=== PATIENT | female | born 2005 | race Caucasian/White ===

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

== ENCOUNTER 2024-10-28 20:45 | Observation (INO) ==
[2024-10-28 21:19] VITALS: RESP 18
[2024-10-28] MEDS ORDERED: LIDOCAINE 1% LOCAL 20 ML VIAL INFIL PRN (23:59)
[2024-10-28] MEDS ORDERED: OXYTOCIN 30 UNITS/NSS 30 UNITS/500 ML BAG IV PRN (23:59)
--- NOTE | 2024-10-29 00:09 | History & Physical Report ---
Date of Service October 29, 2024 Assessment & Plan (1) Supervision of normal first : Plan: Admit to L&D. OK to ambulate. OK for epidural when she desires. FHT/toco. Labs. IV. Glucose on admission and hourly when in active labor. History of Present Illness Chief Complaint: contractions Primary Care Provider: Bonita Kruger 19yo @ 38 5/7, contractions. No leaking, no bleeding. + movement. and Delivery Plans Has medical marijuana card-but states has not used since +HPT Bipolar--on quetiapine Hgb 10.0 on 28 wk labs. Started Fe 09/02 - retest in one month Hepatitis B Non Immune *Recommend Hepatitis B Vaccine GDM (failed 1 hr declines 2hr) GDM on insulin (Not checking) *Wkly NSTs @32wks and Twice wkly @36wks *Serial growth US @28wks *Deliver by [facility] 11/01 Suspected LGA: EFW 89%, AC >98 at 36 weeks. Allergies Allergy/AdvReac Type Severity Reaction Status Date / Time pollen extracts Allergy Intermediate SEASONAL Verified 10/28/24 21:01 ALLERGY latex Allergy Mild Hives Verified 10/28/24 21:01 Home Medications Medication Instructions Recorded Confirmed Type albuterol sulfate 90 mcg/actuation 2 puff inhalation Q4 PRN Wheezing 10/15/18 10/28/24 History aerosol inhaler cetirizine 10 mg capsule (Zyrtec) 10 mg PO HS 03/07/22 10/28/24 History acetaminophen 500 mg tablet 1,000 mg PO Q6 PRN Pain 04/15/23 10/28/24 History (Tylenol Extra Strength) quetiapine 50 mg tablet 150 mg PO HS 04/15/23 10/28/24 History meclizine [Dramamine (meclizine)] 1 tab PO HS 04/28/24 10/28/24 History omeprazole 1 tab PO DAILY 04/28/24 10/28/24 History 21-iron fu-folic acid 1 tab PO DAILY 04/28/24 10/28/24 History [ Complete] ferrous sulfate 1 tab PO DAILY 09/15/24 10/28/24 History acetone (urine) test (Ketone Urine #50 ea 09/20/24 10/21/24 Rx Test strips) blood sugar diagnostic (OneTouch #150 ea 09/20/24 10/21/24 Rx Verio test strips) blood-glucose meter (OneTouch #1 ea 09/20/24 10/21/24 Rx Verio Reflect Meter) lancets 33 gauge (OneTouch Delica #150 ea 09/20/24 10/21/24 Rx Plus Lancet) Patient History Medical History (Updated 10/28/24 @ 21:01 by Niru Gifford, RN) Medical marijuana use stopped in february with positive pregnany test Depression with anxiety Bipolar disorder ADHD Varicella vaccination COVID-19 TMJ (temporomandibular joint disorder) Otalgia, bilateral Allergic conjunctivitis Anxiety Migraine headache Surgical History (Updated 10/28/24 @ 21:00 by Niru Gifford, RN) [place] teeth extracted No history of previous surgery Family History Grandmother (Paternal) Hearing loss Grandmother (Maternal) Hypertension Stroke Cancer Heart disease Bleeding disorder Other No family history of adverse response to anesthesia No pertinent family history Social History (Updated 04/28/24 @ 13:25 by Carmita Myesr) Smoking Status: Former smoker Tobacco Type: E-cigarettes / Vaping Second Hand Exposure: Yes; Do You Dip or Chew Tobacco: No; Hx Alcohol Use: No Hx Substance Use: Yes Prescribed Medications: Marijuana Last Used Substance: Unknown Last Used Substance Other:: last week of 02/2024 Substance Use Type Other:: pt had medical card at the time Preferred Language: Mohawk Communication Ability: Effective Head Of Mobile Required: No Beliefs That Will Affect Care: None marital status: marital status details: andrea Cohnshannon (21) [phone] Current Living Situation: Spouse Current Living Situation Comment: apartment with and mother current occupational status: unemployed Other Information That Helps Us Care for You: No Feels Safe at Home: Yes Safety Concerns: Feels Safe At This Time Assistive Devices: None Review of Systems All systems reviewed & are unremarkable except as noted in HPI & below Physical Exam Physical Exam: FHT Cat 1 Jerome Q 2-4 SVE 4/70/-2 Constitutional: WD/WN, vitals as above Respiratory: normal respiratory effort, lungs clear to auscultation no respiratory distress Cardiovascular: Rate/Rhythm: regular rate and regular rhythm Gastrointestinal (Abdomen): Inspection/Auscultation: abdomen normal to inspection Percussion/Palpation: abdomen soft; abdomen nontender Gravid. No s/s chorio or abruption. Skin: no rashes, warm and dry Psychiatric: A+Ox3, euthymic affect Results & Data Vital Signs (Past 12 Hours) Vital Signs Temp Pulse Resp BP O2 Del Method 10/29/24 00:05 95 H 119/72 10/28/24 21:08 36.8 C 100 H 18 126/76 10/28/24 21:05 36.8 C 18 Room Air Coding Level of Care Code None Diagnoses Supervision of normal first Z34.00
[2024-10-29] MEDS ORDERED: LACTATED RINGER'S 1,000 ML IV SCH (00:15)
[2024-10-29 00:44] LABS: Hematocrit (blood only) 34.4 % (37.0-47.0); Hemoglobin 10.9 g/dl (12.0-16.0); Mean Corpuscular Hemoglobin 26.3 pg (25.0-34.0); Mean Corpuscular Hgb Conc 31.7 g/dL (32.0-36.0); Mean Corpuscular Volume 83.1 fL (80.0-100.0); Mean Platelet Volume 11.7 fL (9.4-12.4); Platelet Count 277 K/uL (130-400); RDW Coefficient of Variation 15.3 % (11.5-14.5); RDW Standard Deviation 45.6 fL (36.4-46.3); Red Blood Count 4.14 M/uL (4.20-5.40); White Blood Count 13.84 K/ul (4.8-10.8)
[2024-10-29 03:06] VITALS: BP 103/69; PULSE 82
[2024-10-29 03:12] VITALS: TEMP 97.9
--- NOTE | 2024-10-29 04:45 | Obstetrical Progress Note ---
Date of Service October 29, 2024 Assessment & Plan Admission and Anticipated Discharge Date Admission Date: October 28, 2024 Subjective Patient requesting to go home. States she thought she was going to be checked and discharged home upon initial arrival at the hospital. Feels like contractions are really spaced, barely feeling them. FHT Cat 1, reactive NST [place] irreg SVE 4/80/-2. Discussed s/s labor - needs to return immediately if these occur. Will DC to home. Followup as scheduled in office, has IOL scheduled Friday. Results & Data Vital Signs (Past 12 Hours) Vital Signs Temp Pulse Resp BP O2 Del Method 10/29/24 03:05 36.6 C 82 18 103/69 10/29/24 00:05 95 H 119/72 10/28/24 21:08 36.8 C 100 H 18 126/76 10/28/24 21:05 36.8 C 18 Room Air PG Care Time/CCT Total # of Minutes Spent Total Time Spent with Patient: Total time spent is greater than 50% in coordination of care (as documented) at patient's floor/unit and/or counseling patient: Coding Level of Care Code 27275 OP VST EST MOD 30 MIN
== END 2024-10-29 04:48 | disposition home or self-care (01) | DRG 833 ==
LOC: OPB 20:45 → 4S1 20:46 → INTOOBSV 23:59 → 4S1 23:59

== ENCOUNTER 2024-11-01 07:33 | Inpatient (IN) ==
[2024-11-01] MEDS ORDERED: ACETAMINOPHEN 325 MG TAB PO PRN (08:10)
[2024-11-01] MEDS ORDERED: LIDOCAINE 1% LOCAL 20 ML VIAL INFIL PRN (08:10)
[2024-11-01] MEDS ORDERED: CALCIUM CARBONATE 500 MG CHEWABLE TAB PO PRN (08:10)
[2024-11-01] MEDS ORDERED: OXYTOCIN 30 UNITS/NSS 30 UNITS/500 ML BAG IV PRN (08:10)
--- NOTE | 2024-11-01 08:33 | History & Physical Report ---
Date of Service November 01, 2024 Assessment & Plan (1) Gestational diabetes mellitus (GDM) affecting , antepartum: (2) Encounter for induction of labor: Plan start pitocin for iol. epidural on demand. arom when indicated. monitor blood sugars. anticipate . fetus category on. Admission and Anticipated Discharge Date Admission Date: November 01, 2024 History of Present Illness Chief Complaint: iol Primary Care Provider: Bonita Kruger Patient is a 19yowf who presents for iol. Inducing for poorly treated gdm. Notes good fm. Has had intermittent contractions for several days. no lof/vb. +fm. Of note , baby appears large on recent ultrasound. and Delivery Plans Has medical marijuana card-but states has not used since +HPT notes it is , has not used since +upt Bipolar--on quetiapine Hgb 10.0 on 28 wk labs. Started Fe 09/02 - retest in one month Hepatitis B Non Immune *Recommend Hepatitis B Vaccine GDM (failed 1 hr declines 2hr) GDM on insulin (Not checking) *Wkly NSTs @32wks and Twice wkly @36wks *Serial growth US @28wks *Deliver by [facility] 11/01 Suspected LGA: EFW 89%, AC >98 at 36 weeks. OB Labs: Blood Type B Positive 05/03/24 Antibody Screen NEGATIVE 05/03/24 Hgb 10.0 g/dl (12.0-16.0) L 08/16/24 Hct 31.8 % (37.0-47.0) L 08/16/24 MCV 86.2 fL (80.0-100.0) 05/03/24 Plt Count 382 K/uL (130-400) 05/03/24 Rubella IgG Antibody Immune (Immune) 05/03/24 Treponema pallidum Ab Negative (Negative) 08/16/24 Hep Bs Antigen Negative (Negative) 05/03/24 Hepatitis C Antibody Negative (Negative) 05/03/24 HIV 1&2 Ab/P24 Ag 4thGn Negative (Negative) 05/03/24 HIV (1&2) Ag & Ab Conf NON-REACTIVE (NON-REACTIVE) 03/07/22 Glucose 1 Hr 50 gm 154 mg/dl (70-130) H 08/16/24 Maternal Serum AFP 32.3 ng/mL 05/24/24 OB Optional Labs: Chlamydia trachomatis RNA Not Detected (NotDetected) 05/03/24 Neisseria gonorrhoeae RNA Not Detected (NotDetected) 05/03/24 Thyroid Stimulating Hormone (TSH) 1.229 uIu/ml (0.300-4.500) 10/18/23 Alpha Fetoprotein Triple Screen SEE NOTE 05/24/24 Labs Reviewed: Horizon 14-negative--mln cfdna-low risk--mln gbs neg Allergies Allergy/AdvReac Type Severity Reaction Status Date / Time pollen extracts Allergy Intermediate SEASONAL Verified 10/29/24 10:10 ALLERGY latex Allergy Mild Hives Verified 10/29/24 10:10 Home Medications Medication Instructions Recorded Confirmed Type albuterol sulfate 90 mcg/actuation 2 puff inhalation Q4 PRN Wheezing 10/15/18 11/01/24 History aerosol inhaler cetirizine 10 mg capsule (Zyrtec) 10 mg PO HS 03/07/22 11/01/24 History quetiapine 50 mg tablet 100 mg PO HS 04/15/23 11/01/24 History meclizine [Dramamine (meclizine)] 1 tab PO HS 04/28/24 11/01/24 History omeprazole 1 tab PO DAILY 04/28/24 11/01/24 History 21-iron fu-folic acid 1 tab PO DAILY 04/28/24 11/01/24 History [ Complete] ferrous sulfate 1 tab PO DAILY 09/15/24 11/01/24 History acetone (urine) test (Ketone Urine #50 ea 09/20/24 10/29/24 Rx Test strips) blood sugar diagnostic (OneTouch #150 ea 09/20/24 10/29/24 Rx Verio test strips) blood-glucose meter (OneTouch #1 ea 09/20/24 10/29/24 Rx Verio Reflect Meter) lancets 33 gauge (OneTouch Delica #150 ea 09/20/24 10/29/24 Rx Plus Lancet) Patient History Medical History (Updated 11/01/24 @ 08:44 by Alysia Johnson MD, FACOG) Medical marijuana use stopped in february with positive pregnany test Depression with anxiety Bipolar disorder ADHD Varicella vaccination COVID-19 TMJ (temporomandibular joint disorder) Otalgia, bilateral Allergic conjunctivitis Anxiety Migraine headache Surgical History [place] teeth extracted No history of previous surgery Family History Grandmother (Paternal) Hearing loss Grandmother (Maternal) Hypertension Stroke Cancer Heart disease Bleeding disorder Other No family history of adverse response to anesthesia No pertinent family history Social History Smoking Status: Former smoker Tobacco Type: E-cigarettes / Vaping Second Hand Exposure: Yes; Do You Dip or Chew Tobacco: No; Hx Alcohol Use: No Hx Substance Use: Yes Prescribed Medications: Marijuana Prescribed Medications Comment: medical marijuana- stopped with positive test Last Used Substance: Unknown Last Used Substance Other:: last week of 02/2024 Substance Use Type Other:: medical marijuana Preferred Language: Slovak Communication Ability: Effective [place] Required: No Beliefs That Will Affect Care: None marital status: marital status details: andrea Crawford Dakotah (21) [phone] Current Living Situation: Spouse Current Living Situation Comment: apartment with and mother current occupational status: unemployed Feels Safe at Home: Yes Safety Concerns: Feels Safe At This Time Diet: regular Assistive Devices: None Physical Exam Constitutional: WD/WN, vitals as above Gastrointestinal (Abdomen): soft, gravid nt Psychiatric: A+Ox3, euthymic affect Genitourinary: cx--4/80/-2/mid/soft toco--jorge efm--150s with mod variability, accels to 170s, no decels Results & Data Vital Signs (Past 12 Hours) Vital Signs Pulse BP 11/01/24 07:48 117 H 122/76 Coding Level of Care Code None Diagnoses Gestational diabetes mellitus (GDM) affecting , antepartum O24.419 Encounter for induction of labor Z34.90
[2024-11-01 08:43] LABS: Hematocrit (blood only) 34.4 % (37.0-47.0); Mean Corpuscular Hemoglobin 26.3 pg (25.0-34.0); Mean Corpuscular Volume 82.1 fL (80.0-100.0); Platelet Count 268 K/uL (130-400); RDW Coefficient of Variation 15.5 % (11.5-14.5); RDW Standard Deviation 46.3 fL (36.4-46.3); Red Blood Count 4.19 M/uL (4.20-5.40); White Blood Count 12.23 K/ul (4.8-10.8)
[2024-11-01 09:58] LABS: Amphetamines+Metham, Urine Neg (Neg); Barbiturates, Urine Neg (Neg); Benzodiazepine, Urine Neg (Neg); Cocaine, Urine Neg (Neg); Fentanyl, Urine Neg (Neg); MDMA (Ecstacy), Urine Neg (Neg); Marijuana, Urine Neg (Neg); Methadone, Urine Neg (Neg); Opiate, Urine Neg (Neg); Phencyclidine, Urine Neg (Neg)
[2024-11-01] MEDS: OXYTOCIN 30 UNITS/NSS 30 UNITS/500 ML BAG IV PRN (10:30)
[2024-11-01] MEDS: SODIUM CHLORIDE 0.9% 1,000 ML IV SCH ×2 (10:32→19:11)
[2024-11-01] MEDS: fentANYL 2 MCG/ML BUPIVacaine 0.125%-NSS 100ML BAG ONE (13:55)
[2024-11-01] MEDS: LIDOCAINE 2%/EPINEPHRINE 1:200,000 20 ML PF ONE (13:56)
[2024-11-01] MEDS: fentaNYL citrate PF 100 MCG/2 ML VIAL ONE (13:58)
[2024-11-01] MEDS: BUPIVACAINE 0.25% PF 30 ML VIAL ONE (13:58)
[2024-11-01] MEDS: SODIUM CHLORIDE 0.9% PF INJ 10 ML VIAL ONE (13:58)
--- NOTE | 2024-11-01 14:02 | Anesthesiology Consultation ---
Date of Service November 01, 2024 Assessment & Plan Chart Review Chart Review: Acceptable Risk for Labor Epidural Consults Requested none History Height/Weight Height: 5 ft 7 in Weight: 101.729 kg Allergies Allergy/AdvReac Type Severity Reaction Status Date / Time pollen extracts Allergy Intermediate SEASONAL Verified 10/29/24 10:10 ALLERGY latex Allergy Mild Hives Verified 10/29/24 10:10 Medications Home Medications Medication Instructions Recorded Confirmed Last Taken albuterol sulfate 90 mcg/actuation 2 puff inhalation Q4 PRN Wheezing 10/15/18 11/01/24 03/06/22 aerosol inhaler cetirizine 10 mg capsule (Zyrtec) 10 mg PO HS 03/07/22 11/01/24 10/27/24 quetiapine 50 mg tablet 100 mg PO HS 04/15/23 11/01/24 10/31/24 21:00 meclizine [Dramamine (meclizine)] 1 tab PO HS 04/28/24 11/01/24 10/31/24 21:00 omeprazole 1 tab PO DAILY 04/28/24 11/01/24 10/27/24 21-iron fu-folic acid 1 tab PO DAILY 04/28/24 11/01/24 10/27/24 [ Complete] ferrous sulfate 1 tab PO DAILY 09/15/24 11/01/24 10/27/24 acetone (urine) test (Ketone Urine #50 ea 09/20/24 10/29/24 Unknown Test strips) blood sugar diagnostic (OneTouch #150 ea 09/20/24 10/29/24 Unknown Verio test strips) blood-glucose meter (OneTouch #1 ea 09/20/24 10/29/24 Unknown Verio Reflect Meter) lancets 33 gauge (OneTouch Delica #150 ea 09/20/24 10/29/24 Unknown Plus Lancet) Active Medications Generic Name Dose Route Start Last Admin Trade Name Freq PRN Reason Stop Dose Admin Oxytocin 30 units in 500 mls @ 9 mls/hr 11/01/24 10:11 11/01/24 13:00 Pitocin 30 Units/Nss IV 11/03/24 10:10 0.54 units/hr .Q24H PRN 9 mls/hr Labor Induction/Augmentation Titration Protocol 0.54 UNITS/HR Sodium Chloride 1,000 mls @ 50 mls/hr 11/01/24 10:15 11/01/24 13:29 Nss IV 11/02/24 10:14 50 mls/hr .Q20H VALERIO Administration Past Medical History Medical History (Updated 11/01/24 @ 10:20 by Brittney Pierce, JO) Asthma Medical marijuana use stopped in february with positive pregnany test Depression with anxiety Bipolar disorder ADHD Varicella vaccination COVID-19 TMJ (temporomandibular joint disorder) Otalgia, bilateral Allergic conjunctivitis Anxiety Migraine headache Past Family History Family History Grandmother (Paternal) Hearing loss Grandmother (Maternal) Hypertension Stroke Cancer Heart disease Bleeding disorder Other No family history of adverse response to anesthesia No pertinent family history Past Surgical History Surgical History [place] teeth extracted No history of previous surgery Social History Smoking Status: Former smoker Do You Dip or Chew Tobacco: No Hx Alcohol Use: No Hx Substance Use: Yes substance use type: marijuana Substance Use Type Other:: medical marijuana Last Used Substance: Unknown Last Used Substance Other:: last week of 02/2024 Physical Exam Vital Signs Last Vital Signs Temp 36.7 C 11/01/24 12:00 Pulse 86 11/01/24 14:00 Resp 18 11/01/24 12:00 BP 111/59 L 11/01/24 14:00 Pulse Ox 99 11/01/24 13:57 Testing Laboratory Results 11/01/24 08:17 Blood Type B Positive 11/01/24 08:17 Antibody Screen NEGATIVE 11/01/24 08:17 11/01/24 11/01/24 12:02 09:04 POC Glucose 94 119 H
[2024-11-01] MEDS ORDERED: ROPIVACAINE 0.5% PF 5 MG/ML 20 ML VIAL EPI PRN (14:03)
[2024-11-01] MEDS ORDERED: fentaNYL citrate PF 100 MCG/2 ML VIAL EPI PRN (14:03)
[2024-11-01] MEDS ORDERED: NALOXONE HCL 1 MG in SODIUM CHLORIDE 0.9% 1,000 ML IV PRN (14:03)
[2024-11-01] MEDS ORDERED: NALOXONE HCL 0.4 MG/1 ML VIAL/CARP IV PRN (14:03)
[2024-11-01] MEDS ORDERED: ePHEDrine sulfate 50 MG/ML AMP IV PRN (14:03)
[2024-11-01] MEDS ORDERED: NALBUPHINE HCL INJ 10 MG/ML AMP IV PRN (14:03)
[2024-11-01] MEDS ORDERED: LIDOCAINE 2% MPF LOCAL 5 ML VIAL EPI PRN (14:03)
[2024-11-01] MEDS ORDERED: diphenhydrAMINE 50 MG/ML VIAL IV PRN (14:03)
[2024-11-01] MEDS ORDERED: BUPIVACAINE 0.25% PF 30 ML VIAL EPI PRN (14:03)
[2024-11-01] MEDS ORDERED: SODIUM CHLORIDE 0.9% PF INJ 10 ML VIAL EPI PRN (14:03)
[2024-11-01] MEDS: fentaNYL citrate PF 100 MCG/2 ML VIAL EPI STA (14:55)
[2024-11-01] MEDS: BUPIVACAINE 0.25% PF 30 ML VIAL EPI STA (14:55)
[2024-11-01] MEDS: LIDOCAINE 2%/EPINEPHRINE 1:200,000 20 ML PF EPI STA (14:55)
[2024-11-01] MEDS: SODIUM CHLORIDE 0.9% PF INJ 10 ML VIAL EPI STA (14:55)
--- NOTE | 2024-11-01 19:08 | Labor Progress Brief Note ---
Date of Service November 01, 2024 Subjective late entry because of busy labor and delivery Patient seen and evaluated. Comfortable with epidural Assessment & Plan (1) Non-compliant patient: (2) Gestational diabetes mellitus (GDM) affecting , antepartum: Plan Sugars have been less than 120. Fetus category one for the most part. Continue current management and increase pitocin. Admission and Anticipated Discharge Date Admission Date: November 01, 2024 Physical Exam Physical Exam: cx--4/75/-2 arom--clear toco--q2-4min, pit at 11 efm--140s with mod variability, accels to 150s, rare small variable Results & Data Vital Signs (Past 12 Hours) Vital Signs Temp Pulse Resp BP Pulse Ox 11/01/24 19:04 90 120/68 11/01/24 19:02 83 99 11/01/24 18:57 82 99 11/01/24 18:52 95 H 99 11/01/24 18:51 85 119/69 11/01/24 18:49 88 122/65 11/01/24 18:47 79 99 11/01/24 18:42 80 99 11/01/24 18:37 86 99 11/01/24 18:32 81 99 11/01/24 18:27 85 100 11/01/24 18:22 79 99 11/01/24 18:17 81 99 11/01/24 18:12 95 H 99 11/01/24 18:07 92 H 99 11/01/24 18:05 111 H 119/76 11/01/24 18:02 86 99 11/01/24 17:57 96 H 98 11/01/24 17:52 87 98 11/01/24 17:51 85 112/70 11/01/24 17:47 80 98 11/01/24 17:42 86 98 11/01/24 17:37 89 98 11/01/24 17:35 82 106/55 L 11/01/24 17:32 85 98 11/01/24 17:27 87 98 11/01/24 17:22 85 99 11/01/24 17:21 87 106/56 L 11/01/24 17:17 87 98 11/01/24 17:14 84 114/63 11/01/24 17:12 85 98 11/01/24 17:07 86 98 11/01/24 17:05 74 83/52 L 11/01/24 17:02 75 99 11/01/24 16:57 80 98 11/01/24 16:52 79 98 11/01/24 16:50 82 97/59 L 11/01/24 16:47 76 98 11/01/24 16:42 79 99 11/01/24 16:37 75 99 11/01/24 16:36 80 104/65 11/01/24 16:32 98 H 99 11/01/24 16:30 18 11/01/24 16:30 36.9 C 18 11/01/24 16:27 92 H 98 11/01/24 16:22 82 98 11/01/24 16:21 96 H 121/73 11/01/24 16:17 71 98 11/01/24 16:12 73 98 11/01/24 16:07 88 98 11/01/24 16:04 80 113/70 11/01/24 16:02 73 98 11/01/24 15:57 74 98 11/01/24 15:52 75 98 11/01/24 15:50 77 116/72 11/01/24 15:47 73 97 11/01/24 15:42 75 97 11/01/24 15:37 79 98 11/01/24 15:35 81 118/71 11/01/24 15:32 77 97 11/01/24 15:30 16 11/01/24 15:30 16 11/01/24 15:27 74 97 11/01/24 15:22 77 98 11/01/24 15:21 80 111/73 11/01/24 15:17 76 97 11/01/24 15:12 83 97 11/01/24 15:07 80 97 11/01/24 15:05 83 112/72 11/01/24 15:02 81 97 11/01/24 14:57 84 97 11/01/24 14:52 93 H 98 11/01/24 14:51 90 108/73 11/01/24 14:47 98 11/01/24 14:47 88 11/01/24 14:47 93 H 100/63 11/01/24 14:42 91 H 99 11/01/24 14:37 99 11/01/24 14:37 92 H 11/01/24 14:37 86 103/59 L 11/01/24 14:32 92 H 99 11/01/24 14:27 93 H 99 11/01/24 14:22 92 H 98 11/01/24 14:20 91 H 104/66 11/01/24 14:17 90 99 11/01/24 14:12 84 99 11/01/24 14:07 87 99 11/01/24 14:04 83 118/65 11/01/24 14:02 90 118/65 99 11/01/24 14:00 86 111/59 L 11/01/24 13:58 88 112/68 11/01/24 13:57 93 H 99 11/01/24 13:56 83 112/65 11/01/24 13:52 85 121/83 99 11/01/24 13:50 94 H 122/82 11/01/24 13:48 93 H 126/83 11/01/24 13:47 97 H 99 11/01/24 13:02 81 119/79 11/01/24 12:01 85 121/79 11/01/24 12:00 18 11/01/24 12:00 36.7 C 18 11/01/24 10:35 86 104/60 11/01/24 08:15 36.4 C L 117 H 122/76 11/01/24 07:48 117 H 122/76 Coding Level of Care Code None Diagnoses Non-compliant patient O09.899; Z91.199 Gestational diabetes mellitus (GDM) affecting , antepartum O24.419
[2024-11-01] MEDS ORDERED: SODIUM CHLORIDE 0.9% 50 ML IV PRN (19:28)
[2024-11-01] MEDS ORDERED: SODIUM CHLORIDE 0.9% 100 ML IV PRN (19:28)
[2024-11-01] MEDS: ePHEDrine sulfate 50 MG/ML AMP ONE (21:23)
--- NOTE | 2024-11-01 21:35 | Labor Progress Brief Note ---
Date of Service November 01, 2024 Subjective notes nausea and some contraction pain. Assessment & Plan (1) Encounter for induction of labor: (2) Non-compliant patient: (3) Gestational diabetes mellitus (GDM) affecting , antepartum: Plan continue current management. fetus category one. anticipate . Admission and Anticipated Discharge Date Admission Date: November 01, 2024 Physical Exam Physical Exam: cx--rim/100/-1 toco--q2-3, pt at 10 efm--130s wtih mod variability, small accels, +scalp stim Results & Data Vital Signs (Past 12 Hours) Vital Signs Temp Pulse Resp BP Pulse Ox 11/01/24 21:27 101 H 97 11/01/24 21:22 89 98 11/01/24 21:20 95 H 112/70 11/01/24 21:17 92 H 98 11/01/24 21:12 94 H 99 11/01/24 21:07 92 H 98 11/01/24 21:05 79 106/60 11/01/24 21:02 84 98 11/01/24 21:01 16 11/01/24 21:01 36.9 C 16 11/01/24 20:57 82 96 11/01/24 20:52 75 98 11/01/24 20:51 77 105/66 11/01/24 20:47 79 98 11/01/24 20:42 78 98 11/01/24 20:37 97 H 98 11/01/24 20:36 99 H 115/68 11/01/24 20:32 93 H 98 11/01/24 20:27 96 H 99 11/01/24 20:22 102 H 99 11/01/24 20:20 87 109/65 11/01/24 20:17 89 98 11/01/24 20:12 87 98 11/01/24 20:07 90 99 11/01/24 20:05 88 106/59 L 11/01/24 20:02 79 98 11/01/24 19:57 82 98 11/01/24 19:52 89 99 11/01/24 19:50 82 99/59 L 11/01/24 19:47 86 98 11/01/24 19:42 79 99 11/01/24 19:37 94 H 99 11/01/24 19:35 89 104/57 L 11/01/24 19:32 89 98 11/01/24 19:27 89 97 11/01/24 19:22 96 H 98 11/01/24 19:20 85 96/62 L 11/01/24 19:17 89 98 11/01/24 19:12 100 H 99 11/01/24 19:10 36.8 C 18 11/01/24 19:07 104 H 99 11/01/24 19:04 90 120/68 11/01/24 19:02 83 99 11/01/24 18:57 82 99 11/01/24 18:52 95 H 99 11/01/24 18:51 85 119/69 11/01/24 18:49 88 122/65 11/01/24 18:47 79 99 11/01/24 18:42 80 99 11/01/24 18:37 86 99 11/01/24 18:32 81 99 11/01/24 18:27 85 100 11/01/24 18:22 79 99 11/01/24 18:17 81 99 11/01/24 18:12 95 H 99 11/01/24 18:07 92 H 99 11/01/24 18:05 111 H 119/76 11/01/24 18:02 86 99 11/01/24 18:00 18 11/01/24 18:00 18 11/01/24 17:57 96 H 98 11/01/24 17:52 87 98 11/01/24 17:51 85 112/70 11/01/24 17:47 80 98 11/01/24 17:42 86 98 11/01/24 17:37 89 98 11/01/24 17:35 82 106/55 L 11/01/24 17:32 85 98 11/01/24 17:27 87 98 11/01/24 17:22 85 99 11/01/24 17:21 87 106/56 L 11/01/24 17:17 87 98 11/01/24 17:14 84 114/63 11/01/24 17:12 85 98 11/01/24 17:07 86 98 11/01/24 17:05 74 83/52 L 11/01/24 17:02 75 99 11/01/24 16:57 80 98 11/01/24 16:52 79 98 11/01/24 16:50 82 97/59 L 11/01/24 16:47 76 98 11/01/24 16:42 79 99 11/01/24 16:37 75 99 11/01/24 16:36 80 104/65 11/01/24 16:32 98 H 99 11/01/24 16:30 18 11/01/24 16:30 36.9 C 18 11/01/24 16:27 92 H 98 11/01/24 16:22 82 98 11/01/24 16:21 96 H 121/73 11/01/24 16:17 71 98 11/01/24 16:12 73 98 11/01/24 16:07 88 98 11/01/24 16:04 80 113/70 11/01/24 16:02 73 98 11/01/24 15:57 74 98 11/01/24 15:52 75 98 11/01/24 15:50 77 116/72 11/01/24 15:47 73 97 11/01/24 15:42 75 97 11/01/24 15:37 79 98 11/01/24 15:35 81 118/71 11/01/24 15:32 77 97 11/01/24 15:30 16 11/01/24 15:30 16 11/01/24 15:27 74 97 11/01/24 15:22 77 98 11/01/24 15:21 80 111/73 11/01/24 15:17 76 97 11/01/24 15:12 83 97 11/01/24 15:07 80 97 11/01/24 15:05 83 112/72 11/01/24 15:02 81 97 11/01/24 14:57 84 97 11/01/24 14:52 93 H 98 11/01/24 14:51 90 108/73 11/01/24 14:47 98 11/01/24 14:47 88 11/01/24 14:47 93 H 100/63 11/01/24 14:42 91 H 99 11/01/24 14:37 99 11/01/24 14:37 92 H 11/01/24 14:37 86 103/59 L 11/01/24 14:32 92 H 99 11/01/24 14:27 93 H 99 11/01/24 14:22 92 H 98 11/01/24 14:20 91 H 104/66 0203/25 14:17 90 99 11/01/24 14:12 84 99 11/01/24 14:07 87 99 11/01/24 14:04 83 118/65 11/01/24 14:02 90 118/65 99 11/01/24 14:00 86 111/59 L 11/01/24 13:58 88 112/68 11/01/24 13:57 93 H 99 11/01/24 13:56 83 112/65 11/01/24 13:52 85 121/83 99 11/01/24 13:50 94 H 122/82 11/01/24 13:48 93 H 126/83 11/01/24 13:47 97 H 99 11/01/24 13:02 81 119/79 11/01/24 12:01 85 121/79 11/01/24 12:00 18 11/01/24 12:00 36.7 C 18 11/01/24 10:35 86 104/60 Coding Level of Care Code None Diagnoses Encounter for induction of labor Z34.90 Non-compliant patient O09.899; Z91.199 Gestational diabetes mellitus (GDM) affecting , antepartum O24.419
[2024-11-01] MEDS: ONDANSETRON INJ 2 MG/ML 2 ML VIAL IV PRN (21:37)
[2024-11-01] MEDS: fentANYL 2 MCG/ML BUPIVacaine 0.125%-NSS 100ML BAG EPI PRN (21:43)
--- NOTE | 2024-11-02 00:15 | Labor Progress Brief Note ---
Date of Service November 02, 2024 Subjective more comfortable Assessment & Plan (1) Encounter for induction of labor: Plan Begin active second stage. Fetus category one. Admission and Anticipated Discharge Date Admission Date: November 01, 2024 Physical Exam Physical Exam: cx--c/c/0-+1 toco--q2min efm--120s with mod variabiltiy, accels present, no decels Results & Data Vital Signs (Past 12 Hours) Vital Signs Temp Pulse Resp BP Pulse Ox 11/02/24 00:12 124 H 100 11/02/24 00:07 90 98 11/02/24 00:05 95 H 115/70 11/02/24 00:02 88 98 11/01/24 23:57 80 99 11/01/24 23:52 91 H 97 11/01/24 23:49 103 H 112/72 11/01/24 23:47 82 98 11/01/24 23:42 89 98 11/01/24 23:37 84 98 11/01/24 23:35 85 111/66 11/01/24 23:32 98 H 97 11/01/24 23:27 91 H 98 11/01/24 23:22 87 97 11/01/24 23:20 96 H 112/66 11/01/24 23:17 83 98 11/01/24 23:12 87 97 11/01/24 23:07 95 H 97 11/01/24 23:05 85 118/66 11/01/24 23:02 36.6 C 94 H 18 98 11/01/24 22:57 83 97 11/01/24 22:52 96 H 97 11/01/24 22:50 88 117/69 11/01/24 22:47 87 98 11/01/24 22:42 88 97 11/01/24 22:37 95 H 96 11/01/24 22:35 86 112/71 11/01/24 22:32 93 H 97 11/01/24 22:27 92 H 98 11/01/24 22:22 86 97 11/01/24 22:20 85 123/75 11/01/24 22:17 85 96 11/01/24 22:12 83 100 11/01/24 22:07 87 97 11/01/24 22:05 98 H 134/79 11/01/24 22:02 89 99 11/01/24 21:57 95 H 99 11/01/24 21:52 91 H 99 11/01/24 21:50 88 116/68 11/01/24 21:47 91 H 98 11/01/24 21:42 86 97 11/01/24 21:37 92 H 97 11/01/24 21:36 88 111/71 11/01/24 21:32 91 H 97 11/01/24 21:27 101 H 97 11/01/24 21:22 89 98 11/01/24 21:20 95 H 112/70 11/01/24 21:17 92 H 98 11/01/24 21:12 94 H 99 11/01/24 21:07 92 H 98 11/01/24 21:05 79 106/60 11/01/24 21:02 84 98 11/01/24 21:01 16 11/01/24 21:01 36.9 C 16 11/01/24 20:57 82 96 11/01/24 20:52 75 98 11/01/24 20:51 77 105/66 11/01/24 20:47 79 98 11/01/24 20:42 78 98 11/01/24 20:37 97 H 98 11/01/24 20:36 99 H 115/68 11/01/24 20:32 93 H 98 11/01/24 20:27 96 H 99 11/01/24 20:22 102 H 99 11/01/24 20:20 87 109/65 11/01/24 20:17 89 98 11/01/24 20:12 87 98 11/01/24 20:07 90 99 11/01/24 20:05 88 106/59 L 11/01/24 20:02 79 98 11/01/24 19:57 82 98 11/01/24 19:52 89 99 11/01/24 19:50 82 99/59 L 11/01/24 19:47 86 98 11/01/24 19:42 79 99 11/01/24 19:37 94 H 99 11/01/24 19:35 89 104/57 L 11/01/24 19:32 89 98 11/01/24 19:27 89 97 11/01/24 19:22 96 H 98 11/01/24 19:20 85 96/62 L 11/01/24 19:17 89 98 02/03/25 19:12 100 H 99 11/01/24 19:10 36.8 C 18 11/01/24 19:07 104 H 99 11/01/24 19:04 90 120/68 11/01/24 19:02 83 99 11/01/24 18:57 82 99 11/01/24 18:52 95 H 99 11/01/24 18:51 85 119/69 11/01/24 18:49 88 122/65 11/01/24 18:47 79 99 11/01/24 18:42 80 99 11/01/24 18:37 86 99 11/01/24 18:32 81 99 11/01/24 18:27 85 100 11/01/24 18:22 79 99 11/01/24 18:17 81 99 11/01/24 18:12 95 H 99 11/01/24 18:07 92 H 99 11/01/24 18:05 111 H 119/76 11/01/24 18:02 86 99 11/01/24 18:00 18 11/01/24 18:00 18 11/01/24 17:57 96 H 98 11/01/24 17:52 87 98 11/01/24 17:51 85 112/70 11/01/24 17:47 80 98 11/01/24 17:42 86 98 11/01/24 17:37 89 98 11/01/24 17:35 82 106/55 L 11/01/24 17:32 85 98 11/01/24 17:27 87 98 11/01/24 17:22 85 99 11/01/24 17:21 87 106/56 L 11/01/24 17:17 87 98 11/01/24 17:14 84 114/63 11/01/24 17:12 85 98 11/01/24 17:07 86 98 11/01/24 17:05 74 83/52 L 11/01/24 17:02 75 99 11/01/24 16:57 80 98 11/01/24 16:52 79 98 11/01/24 16:50 82 97/59 L 11/01/24 16:47 76 98 11/01/24 16:42 79 99 11/01/24 16:37 75 99 11/01/24 16:36 80 104/65 11/01/24 16:32 98 H 99 11/01/24 16:30 18 11/01/24 16:30 36.9 C 18 11/01/24 16:27 92 H 98 11/01/24 16:22 82 98 11/01/24 16:21 96 H 121/73 11/01/24 16:17 71 98 11/01/24 16:12 73 98 11/01/24 16:07 88 98 11/01/24 16:04 80 113/70 11/01/24 16:02 73 98 11/01/24 15:57 74 98 11/01/24 15:52 75 98 11/01/24 15:50 77 116/72 11/01/24 15:47 73 97 11/01/24 15:42 75 97 11/01/24 15:37 79 98 11/01/24 15:35 81 118/71 11/01/24 15:32 77 97 11/01/24 15:30 16 11/01/24 15:30 16 11/01/24 15:27 74 97 11/01/24 15:22 77 98 11/01/24 15:21 80 111/73 11/01/24 15:17 76 97 11/01/24 15:12 83 97 11/01/24 15:07 80 97 11/01/24 15:05 83 112/72 11/01/24 15:02 81 97 11/01/24 14:57 84 97 11/01/24 14:52 93 H 98 11/01/24 14:51 90 108/73 11/01/24 14:47 98 11/01/24 14:47 88 11/01/24 14:47 93 H 100/63 11/01/24 14:42 91 H 99 11/01/24 14:37 99 11/01/24 14:37 92 H 11/01/24 14:37 86 103/59 L 11/01/24 14:32 92 H 99 11/01/24 14:27 93 H 99 11/01/24 14:22 92 H 98 11/01/24 14:20 91 H 104/66 11/01/24 14:17 90 99 11/01/24 14:12 84 99 11/01/24 14:07 87 99 11/01/24 14:04 83 118/65 11/01/24 14:02 90 118/65 99 11/01/24 14:00 86 111/59 L 11/01/24 13:58 88 112/68 11/01/24 13:57 93 H 99 11/01/24 13:56 83 112/65 11/01/24 13:52 85 121/83 99 11/01/24 13:50 94 H 122/82 11/01/24 13:48 93 H 126/83 11/01/24 13:47 97 H 99 11/01/24 13:02 81 119/79 Coding Level of Care Code None Diagnoses Encounter for induction of labor Z34.90
--- NOTE | 2024-11-02 02:05 | Labor Progress Brief Note ---
Date of Service November 02, 2024 Subjective Pushing with better effort. Assessment & Plan (1) Encounter for induction of labor: Plan pushing for 1.5 hours, but nursing notes in last 30 minutes much better effort and definitely has made progress by my exam in the last half hour. fetus reassuring. continue stage 2. Admission and Anticipated Discharge Date Admission Date: November 01, 2024 Physical Exam Physical Exam: cx--c/c/+2 toco--q2min efm--150s with mod variability, small accels, variables with pushing. Results & Data Vital Signs (Past 12 Hours) Vital Signs Temp Pulse Resp BP Pulse Ox 11/02/24 01:58 137 H 95 11/02/24 01:57 121 H 94 11/02/24 01:53 138 H 98 11/02/24 01:48 125 H 97 11/02/24 01:43 146 H 95 11/02/24 01:38 123 H 98 11/02/24 01:33 130 H 97 11/02/24 01:28 135 H 96 11/02/24 01:23 137 H 98 11/02/24 01:18 127 H 98 11/02/24 01:15 20 11/02/24 01:15 36.9 C 20 11/02/24 01:13 132 H 98 11/02/24 01:08 126 H 98 11/02/24 01:04 135 H 88 L 11/02/24 01:03 134 H 98 11/02/24 00:58 141 H 98 11/02/24 00:55 143 H 89 L 11/02/24 00:53 129 H 91 11/02/24 00:50 133 H 107/55 L 11/02/24 00:48 128 H 98 11/02/24 00:43 140 H 99 11/02/24 00:38 116 H 98 11/02/24 00:33 121 H 100 11/02/24 00:27 100 H 99 11/02/24 00:22 121 H 97 11/02/24 00:20 142 H 120/63 11/02/24 00:17 107 H 99 11/02/24 00:12 124 H 100 11/02/24 00:07 90 98 11/02/24 00:05 95 H 115/70 11/02/24 00:02 88 98 11/01/24 23:57 80 99 11/01/24 23:52 91 H 97 11/01/24 23:49 103 H 112/72 11/01/24 23:47 82 98 11/01/24 23:42 89 98 11/01/24 23:37 84 98 11/01/24 23:35 85 111/66 11/01/24 23:32 98 H 97 11/01/24 23:27 91 H 98 11/01/24 23:22 87 97 11/01/24 23:20 96 H 112/66 11/01/24 23:17 83 98 11/01/24 23:12 87 97 11/01/24 23:07 95 H 97 11/01/24 23:05 85 118/66 11/01/24 23:02 36.6 C 94 H 18 98 11/01/24 22:57 83 97 11/01/24 22:52 96 H 97 11/01/24 22:50 88 117/69 11/01/24 22:47 87 98 11/01/24 22:42 88 97 11/01/24 22:37 95 H 96 11/01/24 22:35 86 112/71 11/01/24 22:32 93 H 97 11/01/24 22:27 92 H 98 11/01/24 22:22 86 97 11/01/24 22:20 85 123/75 11/01/24 22:17 85 96 11/01/24 22:12 83 100 11/01/24 22:07 87 97 11/01/24 22:05 98 H 134/79 11/01/24 22:02 89 99 11/01/24 21:57 95 H 99 11/01/24 21:52 91 H 99 11/01/24 21:50 88 116/68 11/01/24 21:47 91 H 98 11/01/24 21:42 86 97 11/01/24 21:37 92 H 97 11/01/24 21:36 88 111/71 11/01/24 21:32 91 H 97 11/01/24 21:27 101 H 97 11/01/24 21:22 89 98 11/01/24 21:20 95 H 112/70 11/01/24 21:17 92 H 98 11/01/24 21:12 94 H 99 11/01/24 21:07 92 H 98 11/01/24 21:05 79 106/60 11/01/24 21:02 84 98 11/01/24 21:01 16 11/01/24 21:01 36.9 C 16 11/01/24 20:57 82 96 11/01/24 20:52 75 98 11/01/24 20:51 77 105/66 11/01/24 20:47 79 98 11/01/24 20:42 78 98 11/01/24 20:37 97 H 98 11/01/24 20:36 99 H 115/68 11/01/24 20:32 93 H 98 11/01/24 20:27 96 H 99 11/01/24 20:22 102 H 99 11/01/24 20:20 87 109/65 11/01/24 20:17 89 98 11/01/24 20:12 87 98 11/01/24 20:07 90 99 11/01/24 20:05 88 106/59 L 11/01/24 20:02 79 98 11/01/24 19:57 82 98 11/01/24 19:52 89 99 11/01/24 19:50 82 99/59 L 11/01/24 19:47 86 98 11/01/24 19:42 79 99 11/01/24 19:37 94 H 99 11/01/24 19:35 89 104/57 L 11/01/24 19:32 89 98 11/01/24 19:27 89 97 11/01/24 19:22 96 H 98 11/01/24 19:20 85 96/62 L 11/01/24 19:17 89 98 11/01/24 19:12 100 H 99 11/01/24 19:10 36.8 C 18 11/01/24 19:07 104 H 99 11/01/24 19:04 90 120/68 11/01/24 19:02 83 99 11/01/24 18:57 82 99 11/01/24 18:52 95 H 99 11/01/24 18:51 85 119/69 11/01/24 18:49 88 122/65 11/01/24 18:47 79 99 11/01/24 18:42 80 99 11/01/24 18:37 86 99 11/01/24 18:32 81 99 11/01/24 18:27 85 100 02/03/25 18:22 79 99 11/01/24 18:17 81 99 11/01/24 18:12 95 H 99 11/01/24 18:07 92 H 99 11/01/24 18:05 111 H 119/76 11/01/24 18:02 86 99 11/01/24 18:00 18 11/01/24 18:00 18 11/01/24 17:57 96 H 98 11/01/24 17:52 87 98 11/01/24 17:51 85 112/70 11/01/24 17:47 80 98 11/01/24 17:42 86 98 11/01/24 17:37 89 98 11/01/24 17:35 82 106/55 L 11/01/24 17:32 85 98 11/01/24 17:27 87 98 11/01/24 17:22 85 99 11/01/24 17:21 87 106/56 L 11/01/24 17:17 87 98 11/01/24 17:14 84 114/63 11/01/24 17:12 85 98 11/01/24 17:07 86 98 11/01/24 17:05 74 83/52 L 11/01/24 17:02 75 99 11/01/24 16:57 80 98 11/01/24 16:52 79 98 11/01/24 16:50 82 97/59 L 11/01/24 16:47 76 98 11/01/24 16:42 79 99 11/01/24 16:37 75 99 11/01/24 16:36 80 104/65 11/01/24 16:32 98 H 99 11/01/24 16:30 18 11/01/24 16:30 36.9 C 18 11/01/24 16:27 92 H 98 11/01/24 16:22 82 98 11/01/24 16:21 96 H 121/73 11/01/24 16:17 71 98 11/01/24 16:12 73 98 11/01/24 16:07 88 98 11/01/24 16:04 80 113/70 11/01/24 16:02 73 98 11/01/24 15:57 74 98 11/01/24 15:52 75 98 11/01/24 15:50 77 116/72 11/01/24 15:47 73 97 11/01/24 15:42 75 97 11/01/24 15:37 79 98 11/01/24 15:35 81 118/71 11/01/24 15:32 77 97 11/01/24 15:30 16 11/01/24 15:30 16 11/01/24 15:27 74 97 11/01/24 15:22 77 98 11/01/24 15:21 80 111/73 11/01/24 15:17 76 97 11/01/24 15:12 83 97 11/01/24 15:07 80 97 11/01/24 15:05 83 112/72 11/01/24 15:02 81 97 11/01/24 14:57 84 97 11/01/24 14:52 93 H 98 11/01/24 14:51 90 108/73 11/01/24 14:47 98 11/01/24 14:47 88 11/01/24 14:47 93 H 100/63 11/01/24 14:42 91 H 99 11/01/24 14:37 99 11/01/24 14:37 92 H 11/01/24 14:37 86 103/59 L 11/01/24 14:32 92 H 99 11/01/24 14:27 93 H 99 11/01/24 14:22 92 H 98 11/01/24 14:20 91 H 104/66 11/01/24 14:17 90 99 11/01/24 14:12 84 99 11/01/24 14:07 87 99 11/01/24 14:04 83 118/65 Coding Level of Care Code None Diagnoses Encounter for induction of labor Z34.90
[2024-11-02] MEDS: miSOPROStoL 200 MCG TAB PR ONE (02:52)
--- NOTE | 2024-11-02 03:10 | Delivery Summary ---
Vaginal Delivery Summary Date of Service November 02, 2024 Vaginal Delivery Summary and 1st Degree LAC (left sulcal) Pre-operative Diagnosis: at 39 1/7 untreated GDM Post-operative Diagnosis: same Procedure: pitocin induction epidural arom first degree vaginal and left sulcal laceration and repair QBL: 395cc Anesthesia: epidural Procedure: The patient presented to labor and delivery for IOL for uncontrolled gdm. She underwent pitocin induction, epidural, then arom at 4- 5cm. She progressed to c/c/0-+1 and labored down for a bit. The patient pushed for 2 hr and 15 min to deliver a viable male infant in yasmeen position. The anterior shoulder was then slowly delivered and the rest of the was then delivered slowly without difficulty. The baby was vigorous. The nose and mouth were bulb suctioned and the was placed in the maternal abdomen for drying and attention. Cord was clamped and cut at about one minute. Cord blood obtained. Placenta delivered spontaneous, intact with a three vessel cord. Cervix/sulci/rectum/perineum were intact. A first degree vaginal laceration and small left sulcal laceration were repaired in the normal standard fashion. Hemostasis obtained with dilute pitocin and fundal massage. Apgars were 7/9. Mother and baby doing well at the end of the delivery. [facility] Vaginal Delivery Charge Delivery Type Details: and 1st Degree LAC (left sulcal)
[2024-11-02] MEDS ORDERED: bisacodyL 10 MG SUPP PR PRN (03:14)
[2024-11-02] MEDS ORDERED: HYDROCORTISONE ACETATE 25 MG SUPP PR PRN (03:14)
[2024-11-02] MEDS ORDERED: OXYTOCIN 30 UNITS/NSS 30 UNITS/500 ML BAG IV PRN (03:14)
[2024-11-02] MEDS ORDERED: oxyCODONE/ACETAMINOPHEN 5mg/325mg TAB PO PRN (03:14)
[2024-11-02] MEDS: BENZOCAINE 20% SPRY 85 APPLN/85 GM CAN EXT PRN (04:11)
[2024-11-02] MEDS: IBUPROFEN 600 MG TAB PO PRN (04:11)
[2024-11-02] MEDS: miSOPROStoL 200 MCG TAB ONE (04:13)
[2024-11-02] MEDS: DIPHTHER/TETAN/PERTUS Vaccine (Tdap, Adol/Adult) 0.5mL IM ONE (04:13)
--- NOTE | 2024-11-02 08:14 | Anesthesia Procedure Note ---
Date of Service November 02, 2024 Anesthesia Post Epidural Note Vital Signs Vital Signs: Temp Pulse Resp BP Pulse Ox 36.8 C 83 18 125/82 96 11/02/24 06:05 11/02/24 06:02 11/02/24 06:05 11/02/24 06:02 11/02/24 02:58 Pain Intensity Back: Pain Intensity: 1 Notes Mental Status: alert / awake / arousable and participated in evaluation Patient Amnestic to Procedure: No Nausea / Vomiting: adequately controlled Pain: adequately controlled Airway Patency, RR, SpO2: stable & adequate BP & HR: stable & adequate Hydration State: stable & adequate Neuraxial Anesthesia: was administered and sensory block resolved Anesthetic Complications: no major complications apparent and Pt Satisfied with anesthetic care Epidural: Removed without complications and With tip intact
[2024-11-02] MEDS: DOCUSATE SODIUM 100 MG CAP PO SCH (08:41)
[2024-11-02] MEDS: PRENATAL VITAMIN 1 TAB PO SCH (08:41)
[2024-11-02 12:28] VITALS: RESP 18
[2024-11-02] MEDS: ACETAMINOPHEN 325 MG TAB PO PRN (12:33)
[2024-11-02] MEDS: ONDANSETRON 4 MG OD TAB PO PRN (12:34)
[2024-11-02] MEDS: QUEtiapine FUMARATE 100 MG TABLET PO SCH (21:40)
[2024-11-03 00:44] VITALS: O2SAT 98
[2024-11-03 06:08] LABS: Hematocrit (blood only) 31.2 % (37.0-47.0); Hemoglobin 10.1 g/dl (12.0-16.0)
--- NOTE | 2024-11-03 06:34 | Obstetrical Progress Note ---
Date of Service November 03, 2024 Assessment & Plan (1) Vaginal delivery: Plan: Both mom and baby doing well. Can Discharge whenever patient feels ready; undecided in morning round as baby is having circumcision today. Admission and Anticipated Discharge Date Admission Date: November 01, 2024 Supervising Physician Co-Signing Physician Notes Resident Physician Supervision Note: I interviewed and examined the patient. Discussed with Dr. Escobedo and agree with findings and plan as documented in the note. Any exceptions or clarifications are listed here: PPD#1 doing well, reviewed DC instructions - she may want to go home later today. Documented By: Melissa Lr, DO Subjective 1st PPDay following 20 years 39 week POG. No active complains; Little hesitant to leave today as baby's circumcision is planned. Both mom and baby doing well. Pain: Mild, intermittent Lochia: Moderate Diet: Regular Ob diet Peeing: Normal, no bladder distension Ambulation: Normally Review of Systems Review of Systems: No SOB, chest pain, leg pain No dizziness, headache, palpitation No Blurring of vision , fever Physical Exam Physical Exam: General: Alert and oriented. No acute distress. CVS: S1 S2+ No murmurs, regular rhythm. Respiratory: CTA bilaterally. No rhonchi, wheezes, or crackles. No increased work of breathing. Abdomen: Bowel sound +. Soft, nontender Uterus: Fundus firm and palpable few cm below the umbilicus. Lower extremities: No LE edema. No deep calf pain. Results & Data Vital Signs (Past 12 Hours) Vital Signs Temp Pulse Resp BP Pulse Ox O2 Del Method 11/02/24 23:50 36.7 C 97 H 18 116/78 98 Room Air 11/02/24 19:30 36.7 C 94 H 18 112/78 95 Room Air Resident Activity Tracking Resident Involvement: Resident Care Provided Care Provided: OB Delivery
[2024-11-03 09:23] VITALS: TEMP 97.9
[2024-11-03 09:51] VITALS: BP 107/73; PULSE 94
[2024-11-03] MEDS: MEASLES, MUMPS & RUBELLA VIRUS VACCINE (MMR) 0.5ML VIAL SQ ONE (14:08)
[2024-11-03] MEDS: HEPATITIS B VIRUS VACCINE 20 MCG/ML IM ONE (14:13)
[2024-11-03] MEDS ORDERED: bisacodyL 5 MG TABEC PO SCH (20:00)
[2024-11-04] MEDS ORDERED: MEASLES, MUMPS & RUBELLA VIRUS VACCINE (MMR) 0.5ML VIAL SQ ONE (09:00)
== END 2024-11-03 15:00 | disposition home or self-care (01) | DRG 806 ==
LOC: 4S1 07:33 → 4E2 11-02 06:43